=== PATIENT | male | born 1940 | race Caucasian/White ===

== ENCOUNTER 2017-01-20 05:05 | Inpatient (IN) | payer OTHER ==
[~2017-01-20] VITALS: Ht 185.4 cm; Wt 98.9 kg
[2017-01-20] VITALS (17 sets, daily range): BP systolic 76–146
[~2017-01-20 05:05] MED LIST: ALLO100T PO; FURO-149 PO; METH1TAB35 PO; METO200T3 PO; MONT10TA25 PO; OMEP40CA33 PO; POTA-118 PO; SIMV40TA5 PO; WARF5TAB2 PO; WARF7.5T2 PO
[2017-01-20] MEDS ORDERED: NACL 0.9% 1,000 ML IV SCH (05:37)
[2017-01-20] MEDS ORDERED: POTA20TA83 PO (05:39)
[2017-01-20] MEDS ORDERED: METO2.5T6 PO (05:39)
[2017-01-20] MEDS ORDERED: PRED10TA PO (05:43)
[2017-01-20] MEDS ORDERED: METH1TAB35 PO (05:43)
[2017-01-20] MEDS ORDERED: SPIR25TA PO (05:45)
[2017-01-20] MEDS ORDERED: LIP40 PO (05:47)
[2017-01-20] MEDS ORDERED: LISI10TA5 PO (05:47)
[2017-01-20] MEDS ORDERED: PERC10 GT (05:49)
[2017-01-20] MEDS ORDERED: APIX2.5T PO (05:50)
[2017-01-20] MEDS ORDERED: NITR-85 PO (05:51)
[2017-01-20] MEDS ORDERED: PREG75CA PO (05:52)
[2017-01-20] MEDS ORDERED: BUDE6HFA INH (05:54)
[2017-01-20] MEDS ORDERED: WARF5TAB2 PO (05:55)
[2017-01-20] MEDS ORDERED: DOCU-144 PO (06:00)
[2017-01-20] MEDS ORDERED: INSU100V26 SUBCUT (06:00)
[2017-01-20 06:09] LABS: MEAN CORPUSCULAR HEMOGLOBIN 29 pg (27-31)
[2017-01-20 06:19] LABS: HEMATOCRIT 40.5 % (36-54); HEMOGLOBIN 13.6 g/dL (14.0-18.0); MEAN CORPUSCULAR HGB CONC 34 % (32-36); MEAN CORPUSCULAR VOLUME 87 fL (79.0-98.0); PLATELET COUNT (AUTO) 181 K/uL (130-430); RED BLOOD CELL COUNT(AUTO) 4.65 MIL/uL (4.2-6.2); WHITE BLOOD COUNT (AUTO) 15.8 K/uL (4.8-10.8)
[2017-01-20 06:20] LABS: ANION GAP 8 (5-15); CALCIUM 9.2 mg/dL (8.4-11.0); CHLORIDE 98 mmol/L (98-107); CREATININE 3.24 mg/dL (0.55-1.30); GLUCOSE 222 mg/dL (70-99); POTASSIUM 5.5 mmol/L (3.5-5.1); SODIUM SERUM 131 mmol/L (136-145); UREA NITROGEN, BLOOD 69 mg/dL (8-21)
[2017-01-20 06:24] LABS: ALANINE AMINOTRANSFERASE 17 U/L (12-78); ALBUMIN 3.2 g/dL (3.4-4.8); ASPARTATE AMINOTRANSFERASE 19 U/L (10-37); LIPASE 123 U/L (73-393); TOTAL BILIRUBIN 0.8 mg/dL (0.0-1.0); TOTAL PROTEIN, SERUM 6.3 g/dL (6.4-8.3)
[2017-01-20 06:25] LABS: INR 1.1 (0.80-1.20); PROTHROMBIN TIME 11.8 SECS (9.5-12.5)
[2017-01-20] MEDS ORDERED: NACL 0.9% 1,000 ML IV ONE ×2 (06:45→08:00)
[2017-01-20] MEDS ORDERED: AZITHROMYCIN 500 MG in NS 250 ML IV ONE (06:45)
[2017-01-20] MEDS ORDERED: AZITHROMYCIN 500 MG/VIAL (ZITHROMAX) IV ONE (06:59)
[2017-01-20 07:07] LABS: BAND % (MANUAL) 9 % (0-6); BASOPHILS % (MANUAL) 0 % (0-2); EOSINOPHILS % (MANUAL) 0 % (0-7); LYMPHOCYTES % (MANUAL) 2 % (20-46); MONOCYTES % (MANUAL) 4 % (0-11)
[2017-01-20] MEDS ORDERED: KETOROLAC TROMETHAMINE 30 MG VIAL IVP ONE (07:15)
[2017-01-20 08:35] LABS: BILIRUBIN,URINE NEGATIVE (NEGATIVE); BLOOD, URINE NEGATIVE (NEGATIVE); CLARITY/URINE CLEAR (CLEAR); COLOR,URINE YELLOW (YELLOW); GLUCOSE,URINE NEGATIVE (NEGATIVE); KETONES,URINE NEGATIVE (NEGATIVE); LEUKOCYTE ESTERASE ,URINE TRACE (NEGATIVE); NITRITE, URINE NEGATIVE (NEGATIVE); PH,URINE 5.5 (5.0-8.0); PROTEIN URINE NEGATIVE (NEGATIVE); UROBILINOGEN,URINE 0.2 (0.2-1.0)
[2017-01-20 08:46] LABS: BACTERIA,URINE RARE /HPF (None Seen); RBC,URINE 0-3 /HPF (0-3)
[2017-01-20 08:47] LABS: MUCUS,URINE 1+ /LPF (None Seen)
[2017-01-20] MEDS ORDERED: OXYCODONE/ACETAMINOPHEN *10*mg/325 mg TABLET GT PRN (10:45)
[2017-01-20] MEDS ORDERED: MORPHINE 4 MG/ML INJ. SYRINGE IVP PRN (10:45)
[2017-01-20] MEDS ORDERED: DEXTROSE 50% JECT 50 ML DISP.SYRIN IVP PRN (10:45)
[2017-01-20] MEDS ORDERED: MORPHINE 2 MG/ML INJ. SYRINGE IVP PRN (10:45)
[2017-01-20] MEDS ORDERED: IPRATROPIUM BROM 0.5 MG/2.5 ML VIAL.NEB (ATROVENT) INH PRN (10:45)
[2017-01-20] MEDS: IPRATROPIUM BROM 0.5 MG/2.5 ML VIAL.NEB (ATROVENT) INH SCH ×4 (11:00→23:45)
[2017-01-20] MEDS: ALBUTEROL SULFATE 0.083% 2.5 MG/3 ML VIAL.NEB INH SCH ×4 (11:00→23:45)
[2017-01-20] MEDS: INSULIN REGULAR, HUMAN 100 UNITS/ML, 10 ML VIAL (novoLIN R) SUBCUT PRN ×3 (12:45→23:11)
[2017-01-20] MEDS: D5NS 1,000 ML IV SCH ×2 (12:46→20:45)
[2017-01-20] MEDS: metroNIDAZOLE 500 mg/NS 100 ML IV SCH ×2 (12:49→21:38)
[2017-01-20] MEDS ORDERED: NOREPINEPHRINE BITARTRATE 4 MG in NS 246 ML IV PRN (13:45)
[2017-01-20] MEDS: ONDANSETRON HCL 4 MG/2 ML VIAL IVP PRN ×2 (13:58→21:37)
[2017-01-20] MEDS ORDERED: SODIUM POLYSTYRENE SULFONATE 15 GM/60 ML UDBTL PO ONE ×2 (14:00→18:45)
[2017-01-20] MEDS: PREGABALIN 75 MG CAPSULE (LYRICA) PO SCH ×2 (14:00→21:38)
[2017-01-20] MEDS: ACETAMINOPHEN 325 MG TABLET PO PRN ×2 (14:39→21:34)
[2017-01-20] MEDS: MONTELUKAST 10 MG TABLET PO SCH (17:25)
[2017-01-20] MEDS: OMEPRAZOLE 20 MG CAPSULE.DR (PriLOSEC) PO SCH (17:25)
[2017-01-20] MEDS ORDERED: SPIRONOLACTONE 25 MG TABLET (ALDACTONE) PO SCH (21:00)
[2017-01-21] VITALS (21 sets, daily range): BP systolic 89–141
[2017-01-21] MEDS ORDERED: NACL 0.9% 1,000 ML IV ONE
[2017-01-21] MEDS: TEMAZEPAM 15 MG CAPSULE PO PRN (03:25)
[2017-01-21] MEDS: IPRATROPIUM BROM 0.5 MG/2.5 ML VIAL.NEB (ATROVENT) INH SCH ×6 (03:30→23:00)
[2017-01-21] MEDS: ALBUTEROL SULFATE 0.083% 2.5 MG/3 ML VIAL.NEB INH SCH ×2 (03:30→07:05)
[2017-01-21] MEDS: metroNIDAZOLE 500 mg/NS 100 ML IV SCH ×3 (05:17→21:48)
[2017-01-21] MEDS: PREGABALIN 75 MG CAPSULE (LYRICA) PO SCH ×3 (05:17→21:49)
[2017-01-21] MEDS: INSULIN REGULAR, HUMAN 100 UNITS/ML, 10 ML VIAL (novoLIN R) SUBCUT PRN ×3 (05:20→17:49)
[2017-01-21] MEDS: D5NS 1,000 ML IV SCH (05:48)
[2017-01-21 06:09] LABS: BASOPHILS % (AUTO) 0.2 % (0.0-2.0); EOSINOPHILS # (AUTO) 0.1 K/uL (0.0-0.4); EOSINOPHILS % (AUTO) 0.7 % (0.0-4.0); HEMOGLOBIN 11.8 g/dL (14.0-18.0); LYMPHOCYTES # (AUTO) 0.8 K/uL (1.0-5.5); LYMPHOCYTES % (AUTO) 6.6 % (20.5-51.5); MEAN CORPUSCULAR HEMOGLOBIN 29 pg (27-31); MEAN CORPUSCULAR HGB CONC 32 % (32-36); MEAN CORPUSCULAR VOLUME 90 fL (79.0-98.0); MONOCYTES # (AUTO) 1.4 K/uL (0.0-1.0); MONOCYTES % (AUTO) 11.7 % (1.7-9.3); NEUTROPHILS # (AUTO) 10.1 K/uL (1.8-7.7); NEUTROPHILS % (AUTO) 80.8 % (40.0-70.0); PLATELET COUNT (AUTO) 154 K/uL (130-430); RED BLOOD CELL COUNT(AUTO) 4.14 MIL/uL (4.2-6.2); RED CELL DISTRIBUTION WIDTH 15.5 % (9.0-15.0); WHITE BLOOD COUNT (AUTO) 12.4 K/uL (4.8-10.8)
[2017-01-21 06:40] LABS: ALANINE AMINOTRANSFERASE 18 U/L (12-78); ALBUMIN 2.6 g/dL (3.4-4.8); ANION GAP 7 (5-15); ASPARTATE AMINOTRANSFERASE 19 U/L (10-37); CALCIUM 8.1 mg/dL (8.4-11.0); CHLORIDE 104 mmol/L (98-107); CREATININE 2.68 mg/dL (0.55-1.30); GLUCOSE 333 mg/dL (70-99); POTASSIUM 4.6 mmol/L (3.5-5.1); SODIUM SERUM 135 mmol/L (136-145); TOTAL BILIRUBIN 0.8 mg/dL (0.0-1.0); TOTAL PROTEIN, SERUM 5.7 g/dL (6.4-8.3); UREA NITROGEN, BLOOD 51 mg/dL (8-21)
[2017-01-21] MEDS: LEVOFLOXACIN 250 MG/D5W 50 ML IV SCH (08:29)
[2017-01-21] MEDS: ATORVASTATIN 20 MG TABLET PO SCH (08:34)
[2017-01-21] MEDS: ALLOPURINOL 100 MG TABLET (ZYLOPRIM) PO SCH (08:35)
[2017-01-21] MEDS: METOPROLOL SUCCINATE 50 MG TAB.SR.24H (TOPROL XL) PO SCH (08:52)
[2017-01-21] MEDS: AZITHROMYCIN 250 MG in NS 250 ML IV SCH (09:21)
[2017-01-21] MEDS ORDERED: LORazepam 2 MG/ML VIAL IVP PRN (10:30)
[2017-01-21] MEDS ORDERED: LORazepam 2 MG/ML VIAL ONE (10:36)
[2017-01-21] MEDS: MONTELUKAST 10 MG TABLET PO SCH (17:37)
[2017-01-21] MEDS: OMEPRAZOLE 20 MG CAPSULE.DR (PriLOSEC) PO SCH (17:37)
[2017-01-21] MEDS: HEPARIN SODIUM,PORCINE 5000 UNITS/ML VIAL SUBCUT SCH (21:50)
[2017-01-22 00:07] VITALS: BP_SYST 112
[2017-01-22] MEDS: INSULIN REGULAR, HUMAN 100 UNITS/ML, 10 ML VIAL (novoLIN R) SUBCUT PRN ×5 (00:09→23:06)
[2017-01-22] MEDS: IPRATROPIUM BROM 0.5 MG/2.5 ML VIAL.NEB (ATROVENT) INH SCH ×6 (02:00→23:46)
[2017-01-22 03:58] VITALS: BP_SYST 116
[2017-01-22] MEDS: metroNIDAZOLE 500 mg/NS 100 ML IV SCH ×3 (07:00→21:28)
[2017-01-22] MEDS: PREGABALIN 75 MG CAPSULE (LYRICA) PO SCH ×3 (07:02→21:28)
[2017-01-22] MEDS: D5NS 1,000 ML IV SCH ×2 (07:02→09:55)
[2017-01-22 07:10] LABS: BASOPHILS % (AUTO) 0.3 % (0.0-2.0); EOSINOPHILS # (AUTO) 0.3 K/uL (0.0-0.4); EOSINOPHILS % (AUTO) 4.1 % (0.0-4.0); HEMATOCRIT 35.3 % (36-54); HEMOGLOBIN 11.4 g/dL (14.0-18.0); LYMPHOCYTES % (AUTO) 12.5 % (20.5-51.5); MEAN CORPUSCULAR HEMOGLOBIN 29 pg (27-31); MEAN CORPUSCULAR HGB CONC 32 % (32-36); MEAN CORPUSCULAR VOLUME 90 fL (79.0-98.0); MONOCYTES # (AUTO) 1.2 K/uL (0.0-1.0); MONOCYTES % (AUTO) 14.6 % (1.7-9.3); NEUTROPHILS # (AUTO) 5.4 K/uL (1.8-7.7); NEUTROPHILS % (AUTO) 68.5 % (40.0-70.0); PLATELET COUNT (AUTO) 114 K/uL (130-430); RED BLOOD CELL COUNT(AUTO) 3.95 MIL/uL (4.2-6.2); RED CELL DISTRIBUTION WIDTH 15.3 % (9.0-15.0); WHITE BLOOD COUNT (AUTO) 7.9 K/uL (4.8-10.8)
[2017-01-22 07:23] LABS: ANION GAP 6 (5-15); CALCIUM 8.6 mg/dL (8.4-11.0); CHLORIDE 106 mmol/L (98-107); CREATININE 1.74 mg/dL (0.55-1.30); GLUCOSE 282 mg/dL (70-99); POTASSIUM 4.2 mmol/L (3.5-5.1); SODIUM SERUM 138 mmol/L (136-145); UREA NITROGEN, BLOOD 28 mg/dL (8-21)
[2017-01-22 08:00] VITALS: BP_SYST 141
[2017-01-22] MEDS: LEVOFLOXACIN 250 MG/D5W 50 ML IV SCH (08:57)
[2017-01-22] MEDS: ATORVASTATIN 20 MG TABLET PO SCH (08:57)
[2017-01-22] MEDS: ALLOPURINOL 100 MG TABLET (ZYLOPRIM) PO SCH (08:57)
[2017-01-22] MEDS: HEPARIN SODIUM,PORCINE 5000 UNITS/ML VIAL SUBCUT SCH ×2 (09:07→21:29)
[2017-01-22] MEDS: METOPROLOL SUCCINATE 50 MG TAB.SR.24H (TOPROL XL) PO SCH (09:30)
[2017-01-22] MEDS: AZITHROMYCIN 250 MG in NS 250 ML IV SCH (09:47)
[2017-01-22] MEDS ORDERED: GENTAMICIN 80 mg/100 mL NS 100 ML IV ONE (10:45)
[2017-01-22 11:54] VITALS: BP_SYST 139
[2017-01-22] MEDS: AMIKACIN SULFATE 500 MG in D5W 100 ML IV SCH ×2 (13:12→23:10)
[2017-01-22] MEDS: 0.45% NACL 1,000 ML IV SCH (15:59)
[2017-01-22 16:26] VITALS: BP_SYST 132
[2017-01-22] MEDS: MONTELUKAST 10 MG TABLET PO SCH (17:08)
[2017-01-22] MEDS: OMEPRAZOLE 20 MG CAPSULE.DR (PriLOSEC) PO SCH (17:08)
[2017-01-22 20:00] VITALS: BP_SYST 119
[2017-01-22] MEDS: TEMAZEPAM 15 MG CAPSULE PO PRN (23:04)
[2017-01-22] MEDS: ALBUTEROL SULFATE 0.083% 2.5 MG/3 ML VIAL.NEB INH PRN (23:47)
[2017-01-23] VITALS (8 sets, daily range): BP systolic 101–140
[2017-01-23] MEDS: IPRATROPIUM BROM 0.5 MG/2.5 ML VIAL.NEB (ATROVENT) INH SCH ×7 (01:11→23:00)
[2017-01-23] MEDS: ALBUTEROL SULFATE 0.083% 2.5 MG/3 ML VIAL.NEB INH PRN ×2 (03:59→04:00)
[2017-01-23] MEDS: PREGABALIN 75 MG CAPSULE (LYRICA) PO SCH ×3 (05:40→21:41)
[2017-01-23] MEDS: metroNIDAZOLE 500 mg/NS 100 ML IV SCH ×2 (05:40→13:45)
[2017-01-23] MEDS: INSULIN REGULAR, HUMAN 100 UNITS/ML, 10 ML VIAL (novoLIN R) SUBCUT PRN ×3 (05:45→17:08)
[2017-01-23 06:23] LABS: ANION GAP 7 (5-15); CALCIUM 8.4 mg/dL (8.4-11.0); CHLORIDE 104 mmol/L (98-107); CREATININE 1.59 mg/dL (0.55-1.30); GLUCOSE 287 mg/dL (70-99); POTASSIUM 3.7 mmol/L (3.5-5.1); SODIUM SERUM 136 mmol/L (136-145); UREA NITROGEN, BLOOD 17 mg/dL (8-21)
[2017-01-23] MEDS: LEVOFLOXACIN 250 MG/D5W 50 ML IV SCH (08:30)
[2017-01-23] MEDS: AZITHROMYCIN 250 MG in NS 250 ML IV SCH (08:30)
[2017-01-23] MEDS: ATORVASTATIN 20 MG TABLET PO SCH (08:30)
[2017-01-23] MEDS: ALLOPURINOL 100 MG TABLET (ZYLOPRIM) PO SCH (08:30)
[2017-01-23] MEDS: METOPROLOL SUCCINATE 50 MG TAB.SR.24H (TOPROL XL) PO SCH (08:31)
[2017-01-23] MEDS: HEPARIN SODIUM,PORCINE 5000 UNITS/ML VIAL SUBCUT SCH ×2 (08:33→21:42)
[2017-01-23] MEDS: AMIKACIN SULFATE 500 MG in D5W 100 ML IV SCH (11:17)
[2017-01-23] MEDS: 0.45% NACL 1,000 ML IV SCH (13:46)
[2017-01-23] MEDS ORDERED: POLYETHYLENE GLYCOL 3350, 17 GM/ POWD.PACK PO ONE (15:15)
[2017-01-23] MEDS ORDERED: FUROSEMIDE 40 MG/4 ML VIAL IVP ONE (15:30)
[2017-01-23] MEDS: OMEPRAZOLE 20 MG CAPSULE.DR (PriLOSEC) PO SCH (17:05)
[2017-01-23] MEDS: MONTELUKAST 10 MG TABLET PO SCH (17:05)
[2017-01-23] MEDS: CEFEPIME 1 GM in D5W 50 ML IV SCH (17:36)
[2017-01-23] MEDS: BISACODYL 5 MG TABLET.DR (DULCOLAX) PO PRN (21:40)
[2017-01-23] MEDS: TEMAZEPAM 15 MG CAPSULE PO PRN (21:41)
[2017-01-23] MEDS: metroNIDAZOLE 500 MG TABLET PO SCH (21:41)
[2017-01-24] MEDS: INSULIN REGULAR, HUMAN 100 UNITS/ML, 10 ML VIAL (novoLIN R) SUBCUT PRN ×5 (00:08→23:25)
[2017-01-24 04:44] VITALS: BP_SYST 122
[2017-01-24] MEDS: PREGABALIN 75 MG CAPSULE (LYRICA) PO SCH ×3 (05:26→21:31)
[2017-01-24] MEDS: metroNIDAZOLE 500 MG TABLET PO SCH ×3 (05:26→21:31)
[2017-01-24 06:56] LABS: BASOPHILS % (AUTO) 0.5 % (0.0-2.0); EOSINOPHILS # (AUTO) 0.5 K/uL (0.0-0.4); EOSINOPHILS % (AUTO) 6.1 % (0.0-4.0); HEMOGLOBIN 12.2 g/dL (14.0-18.0); LYMPHOCYTES # (AUTO) 1.5 K/uL (1.0-5.5); LYMPHOCYTES % (AUTO) 17.5 % (20.5-51.5); MEAN CORPUSCULAR HEMOGLOBIN 30 pg (27-31); MEAN CORPUSCULAR HGB CONC 34 % (32-36); MEAN CORPUSCULAR VOLUME 89 fL (79.0-98.0); MONOCYTES # (AUTO) 1.1 K/uL (0.0-1.0); MONOCYTES % (AUTO) 13.5 % (1.7-9.3); NEUTROPHILS # (AUTO) 5.2 K/uL (1.8-7.7); NEUTROPHILS % (AUTO) 62.4 % (40.0-70.0); PLATELET COUNT (AUTO) 146 K/uL (130-430); RED BLOOD CELL COUNT(AUTO) 4.04 MIL/uL (4.2-6.2); RED CELL DISTRIBUTION WIDTH 14.6 % (9.0-15.0); WHITE BLOOD COUNT (AUTO) 8.3 K/uL (4.8-10.8)
[2017-01-24 07:12] LABS: ANION GAP 5 (5-15); CALCIUM 8.4 mg/dL (8.4-11.0); CHLORIDE 102 mmol/L (98-107); CREATININE 1.32 mg/dL (0.55-1.30); GLUCOSE 300 mg/dL (70-99); POTASSIUM 3.6 mmol/L (3.5-5.1); SODIUM SERUM 134 mmol/L (136-145); UREA NITROGEN, BLOOD 14 mg/dL (8-21)
[2017-01-24] MEDS: IPRATROPIUM BROM 0.5 MG/2.5 ML VIAL.NEB (ATROVENT) INH SCH ×4 (07:29→19:00)
[2017-01-24 08:00] VITALS: BP_SYST 124
[2017-01-24] MEDS: POLYETHYLENE GLYCOL 3350, 17 GM/ POWD.PACK PO SCH (08:15)
[2017-01-24] MEDS: ATORVASTATIN 20 MG TABLET PO SCH (08:16)
[2017-01-24] MEDS: ALLOPURINOL 100 MG TABLET (ZYLOPRIM) PO SCH (08:16)
[2017-01-24] MEDS: METOPROLOL SUCCINATE 50 MG TAB.SR.24H (TOPROL XL) PO SCH (08:17)
[2017-01-24] MEDS: HEPARIN SODIUM,PORCINE 5000 UNITS/ML VIAL SUBCUT SCH ×2 (08:26→20:40)
[2017-01-24 12:06] VITALS: BP_SYST 136
[2017-01-24] MEDS: ALBUTEROL SULFATE 0.083% 2.5 MG/3 ML VIAL.NEB INH PRN (15:33)
[2017-01-24] MEDS: 0.45% NACL 1,000 ML IV SCH (15:49)
[2017-01-24 16:02] VITALS: BP_SYST 131
[2017-01-24] MEDS ORDERED: FUROSEMIDE 40 MG/4 ML VIAL IVP ONE (16:30)
[2017-01-24] MEDS ORDERED: NA PHOS,M-B/NA PHOS,DI-BA 118 ML (FLEET ENEMA) RC ONE (16:45)
[2017-01-24] MEDS: OMEPRAZOLE 20 MG CAPSULE.DR (PriLOSEC) PO SCH (17:13)
[2017-01-24] MEDS: CEFEPIME 1 GM in D5W 50 ML IV SCH (17:13)
[2017-01-24] MEDS: MONTELUKAST 10 MG TABLET PO SCH (17:13)
[2017-01-24] MEDS ORDERED: MINERAL OIL 133 ML ENEMA RC ONE (20:00)
[2017-01-24] MEDS: BISACODYL 5 MG TABLET.DR (DULCOLAX) PO PRN (21:31)
[2017-01-24] MEDS ORDERED: LACTULOSE 20 GM/30 ML UDC PO ONE (23:00)
[2017-01-25 00:11] VITALS: BP_SYST 99
[2017-01-25] MEDS: IPRATROPIUM BROM 0.5 MG/2.5 ML VIAL.NEB (ATROVENT) INH SCH ×3 (00:13→08:41)
[2017-01-25] MEDS: ALBUTEROL SULFATE 0.083% 2.5 MG/3 ML VIAL.NEB INH PRN (00:13)
[2017-01-25 04:00] VITALS: BP_SYST 97
[2017-01-25] MEDS: metroNIDAZOLE 500 MG TABLET PO SCH (06:03)
[2017-01-25] MEDS: PREGABALIN 75 MG CAPSULE (LYRICA) PO SCH (06:04)
[2017-01-25] MEDS: INSULIN REGULAR, HUMAN 100 UNITS/ML, 10 ML VIAL (novoLIN R) SUBCUT PRN (06:15)
[2017-01-25 08:00] VITALS: BP_SYST 103
[2017-01-25] MEDS: ATORVASTATIN 20 MG TABLET PO SCH (08:59)
[2017-01-25] MEDS: ALLOPURINOL 100 MG TABLET (ZYLOPRIM) PO SCH (08:59)
[2017-01-25] MEDS: POLYETHYLENE GLYCOL 3350, 17 GM/ POWD.PACK PO SCH (08:59)
[2017-01-25] MEDS: METOPROLOL SUCCINATE 50 MG TAB.SR.24H (TOPROL XL) PO SCH (09:00)
[2017-01-25] MEDS: HEPARIN SODIUM,PORCINE 5000 UNITS/ML VIAL SUBCUT SCH (09:00)
[2017-01-25 09:32] VITALS: BP_SYST 103
== END 2017-01-25 09:43 | disposition home health service (06) | DRG 871 ==
LOC: SED 05:05 → SIC 07:58 → STU 01-21 18:15 → SMU 01-23 11:38
PROVIDERS: ADMIT Internal Medicine Hospice and Palliative Medicine; ATTEND Internal Medicine Hospice and Palliative Medicine
DX: A41.51 Sepsis due to Escherichia coli [E. coli] (principal); N17.0 Acute kidney failure with tubular necrosis; J18.9 Pneumonia, unspecified organism; R65.21 Severe sepsis with septic shock; N39.0 Urinary tract infection, site not specified; E66.9 Obesity, unspecified; Z96.651 Presence of right artificial knee joint; I48.2 Chronic atrial fibrillation; J44.9 Chronic obstructive pulmonary disease, unspecified; E11.65 Type 2 diabetes mellitus with hyperglycemia; K52.9 Noninfective gastroenteritis and colitis, unspecified; K57.90 Diverticulosis of intestine, part unspecified, without perforation or abscess without bleeding; I10 Essential (primary) hypertension; E87.5 Hyperkalemia; E86.0 Dehydration; E78.5 Hyperlipidemia, unspecified; F32.9 Major depressive disorder, single episode, unspecified; Z85.118 Personal history of other malignant neoplasm of bronchus and lung; Z87.891 Personal history of nicotine dependence; Z92.21 Personal history of antineoplastic chemotherapy; Z80.0 Family history of malignant neoplasm of digestive organs; Z88.0 Allergy status to penicillin; Z68.28 Body mass index [BMI] 28.0-28.9, adult
CPT/HCPCS: 36415; 71010; 76770; 80048; 80053; 81000-TC; 82962; 83605; 83690-TC; 84484; 85007; 85025; 85027; 85610-TC; 85730-TC; 86713; 87040-TC; 87045-TC; 87046; 87070-TC; 87081; 87086; 87177; 87186-TC; 87205-TC; 87230-TC; 89055; 93005; 94640; 94760; 96361; 96365; 96375; 97116-GP; 97530-GP; 99285; J0278; J0456; J0692; J1580; J1644; J1815; J1885; J1940; J1956; J2060; J2270; J2405; J3490; J7030; J7042; J7050; J7060

== ENCOUNTER 2017-02-05 20:11 | Inpatient (IN) | payer OTHER ==
[2017-01-20 14:45] VITALS: Ht 185.4 cm; Wt 108.4 kg
[~2017-02-05] VITALS: Ht 185.4 cm; Wt 108.4 kg
[2017-02-05 20:11] VITALS: BP 86/46; PULSE 69; RESP 28; TEMP 97.8; O2SAT 96
[~2017-02-05 20:11] MED LIST changes: +APIX2.5T PO; +BP MED; +BUDE6HFA INH; +CHOLESTEROL PILL; +COUMADIN; +DOCU-144 PO; +INSU100V26 SUBCUT; +LIP40 PO; +LISI10TA5 PO; +METO2.5T6 PO; +NITR-85 PO; +PERC10 GT; +POTA20TA83 PO; +PRED10TA PO; +PREG75CA PO; +SPIR25TA PO; +WATER PILL; +[UNRECOGNIZED DRUG - OTHER]
--- NOTE | 2017-02-05 20:11 | NUR ---
Patient to ER bed 1 to gown for evaluation. Side rails up. Report given to WESLEY ONEILL.
--- NOTE | 2017-02-05 20:16 | NUR ---
Patient alert and oriented x 4, came in the ER accompanied by his son with a complaint of low blood pressure SBP on the 60s. BP is 86/46 at this time. No acute distress or SOB noted. Denies n/v/d or fever. Per son, patient still took BP meds even if BP is low. Will monitor patient.
[2017-02-05] MEDS ORDERED: NS 1000 ML BAG IV ONE (20:45)
[2017-02-05] MEDS ORDERED: DEXTROSE 50% JECT 50 ML DISP.SYRIN IVP ONE (20:45)
--- NOTE | 2017-02-05 20:45 | NUR ---
ER Dr. Vicente at bedside examining patient.
[2017-02-05] MEDS ORDERED: DEXTROSE 50% JECT 50 ML DISP.SYRIN ONE (20:46)
--- NOTE | 2017-02-05 20:48 | NUR ---
Patient complaining of tingling sensation on his fingers. Blood sugar 59 at this time. No acute distress or SOB noted at thsi time. BP still low at 83/28. Will continue to monitor.
[2017-02-05 21:12] LABS: BASOPHILS # (AUTO) 0.1 K/uL (0.0-0.2); BASOPHILS % (AUTO) 1.2 % (0.0-2.0); EOSINOPHILS # (AUTO) 0.3 K/uL (0.0-0.4); EOSINOPHILS % (AUTO) 3.1 % (0.0-4.0); HEMATOCRIT 40.4 % (36-54); HEMOGLOBIN 13.5 g/dL (14.0-18.0); LYMPHOCYTES # (AUTO) 2.8 K/uL (1.0-5.5); LYMPHOCYTES % (AUTO) 29.5 % (20.5-51.5); MEAN CORPUSCULAR HEMOGLOBIN 30 pg (27-31); MEAN CORPUSCULAR HGB CONC 33 % (32-36); MEAN CORPUSCULAR VOLUME 90 fL (79.0-98.0); MONOCYTES # (AUTO) 0.9 K/uL (0.0-1.0); MONOCYTES % (AUTO) 9.4 % (1.7-9.3); NEUTROPHILS # (AUTO) 5.4 K/uL (1.8-7.7); NEUTROPHILS % (AUTO) 56.8 % (40.0-70.0); PLATELET COUNT (AUTO) 251 K/uL (130-430); RED BLOOD CELL COUNT(AUTO) 4.49 MIL/uL (4.2-6.2); RED CELL DISTRIBUTION WIDTH 15.1 % (9.0-15.0); WHITE BLOOD COUNT (AUTO) 9.5 K/uL (4.8-10.8)
[2017-02-05 21:27] LABS: INR 1.1 (0.80-1.20); PROTHROMBIN TIME 11.7 SECS (9.5-12.5)
[2017-02-05] MEDS ORDERED: CEFEPIME 1 GM in D5W 50 ML IV ONE (21:30)
[2017-02-05 21:36] LABS: ANION GAP 6 (5-15); CHLORIDE 103 mmol/L (98-107); CREATININE 2.37 mg/dL (0.55-1.30); GLUCOSE 76 mg/dL (70-99); POTASSIUM 4.6 mmol/L (3.5-5.1); SODIUM SERUM 131 mmol/L (136-145); UREA NITROGEN, BLOOD 49 mg/dL (8-21)
[2017-02-05 21:41] LABS: ALANINE AMINOTRANSFERASE 26 U/L (12-78); ALBUMIN 3.2 g/dL (3.4-4.8); ASPARTATE AMINOTRANSFERASE 21 U/L (10-37); TOTAL BILIRUBIN 0.5 mg/dL (0.0-1.0); TOTAL PROTEIN, SERUM 6.6 g/dL (6.4-8.3)
[2017-02-05] MEDS ORDERED: CEFEPIME 1 GM/VIAL (MAXIPIME) ONE (21:47)
[2017-02-05] MEDS ORDERED: NACL 0.9% 1,000 ML IV ONE ×2 (22:57→23:15)
[2017-02-05 23:00] VITALS: BP 120/44; PULSE 76; RESP 20; O2SAT 100
--- NOTE | 2017-02-05 23:05 | NUR ---
Patient will be admitted under the care of Dr. Michelle. Admitted to ICU unit. Will go to room 7. All belongings will be taken home by the son. Summary report printed. Report given to WESLEY Davis at bedside.
[2017-02-05 23:10] VITALS: BP 104/56; PULSE 77; RESP 20; TEMP 97.9; O2SAT 95
--- NOTE | 2017-02-05 23:10 | NUR ---
ADMIT Pt admitted from ER via gurney, accompanied by ACLS staff and family. Pt alert/ oriented to self, time and place. Pt on room air, IV fluids infusing in LAC. 18 ga present LAC started in ER, no redness or swelling noted @ site. Vitals WNL. Pt oriented to room and surroundings.
[2017-02-05] MEDS ORDERED: OXYCODONE/ACETAMINOPHEN *10*mg/325 mg TABLET GT PRN (23:15)
[2017-02-05] MEDS ORDERED: DEXTROSE 50% JECT 50 ML DISP.SYRIN IVP PRN (23:15)
[2017-02-06] VITALS (15 sets, daily range): BP systolic 83–148; BP diastolic 39–84; PULSE 67–86; RESP 13–27; TEMP 97–98.2; O2SAT 90–99
[2017-02-06 04:23] LABS: BILIRUBIN,URINE NEGATIVE (NEGATIVE); BLOOD, URINE NEGATIVE (NEGATIVE); CLARITY/URINE CLEAR (CLEAR); COLOR,URINE YELLOW (YELLOW); GLUCOSE,URINE NEGATIVE (NEGATIVE); KETONES,URINE NEGATIVE (NEGATIVE); LEUKOCYTE ESTERASE ,URINE 1+ (NEGATIVE); NITRITE, URINE NEGATIVE (NEGATIVE); PROTEIN URINE NEGATIVE (NEGATIVE); UROBILINOGEN,URINE 0.2 (0.2-1.0)
[2017-02-06 04:37] LABS: BACTERIA,URINE FEW /HPF (None Seen); MUCUS,URINE None Seen /LPF (None Seen); RBC,URINE 0-3 /HPF (0-3)
[2017-02-06] MEDS: INSULIN REGULAR, HUMAN 100 UNITS/ML, 10 ML VIAL (novoLIN R) SUBCUT PRN ×4 (06:04→21:41)
[2017-02-06 06:37] LABS: ALANINE AMINOTRANSFERASE 24 U/L (12-78); ALBUMIN 2.9 g/dL (3.4-4.8); ANION GAP 5 (5-15); ASPARTATE AMINOTRANSFERASE 22 U/L (10-37); CALCIUM 8.4 mg/dL (8.4-11.0); CHLORIDE 103 mmol/L (98-107); CREATININE 1.98 mg/dL (0.55-1.30); GLUCOSE 121 mg/dL (70-99); PHOSPHORUS 5.6 mg/dL (2.7-4.5); POTASSIUM 4.8 mmol/L (3.5-5.1); SODIUM SERUM 134 mmol/L (136-145); TOTAL BILIRUBIN 0.6 mg/dL (0.0-1.0); TOTAL PROTEIN, SERUM 6.3 g/dL (6.4-8.3); UREA NITROGEN, BLOOD 45 mg/dL (8-21)
[2017-02-06 06:38] LABS: BASOPHILS # (AUTO) 0.1 K/uL (0.0-0.2); BASOPHILS % (AUTO) 1.3 % (0.0-2.0); EOSINOPHILS # (AUTO) 0.3 K/uL (0.0-0.4); EOSINOPHILS % (AUTO) 3.5 % (0.0-4.0); HEMATOCRIT 37.6 % (36-54); HEMOGLOBIN 12.7 g/dL (14.0-18.0); LYMPHOCYTES % (AUTO) 22.5 % (20.5-51.5); MEAN CORPUSCULAR HEMOGLOBIN 31 pg (27-31); MEAN CORPUSCULAR HGB CONC 34 % (32-36); MEAN CORPUSCULAR VOLUME 91 fL (79.0-98.0); MONOCYTES # (AUTO) 0.9 K/uL (0.0-1.0); MONOCYTES % (AUTO) 10.1 % (1.7-9.3); NEUTROPHILS # (AUTO) 5.7 K/uL (1.8-7.7); NEUTROPHILS % (AUTO) 62.6 % (40.0-70.0); PLATELET COUNT (AUTO) 218 K/uL (130-430); RED BLOOD CELL COUNT(AUTO) 4.15 MIL/uL (4.2-6.2); RED CELL DISTRIBUTION WIDTH 15.4 % (9.0-15.0)
--- NOTE | 2017-02-06 07:30 | NUR ---
RECEIVED PT ALERT AND ORIENTED AND REQUESTING TO GO HOME. EXPLAINED THAT HE CAN LEAVE ANYTIME HE WANTS. PTS SON AT BEDSIDE AND WOULD LIKE HIS DAD TO STAY. AFIB ON MONITOR. SBP 80-90'S. WILL WATCH. PT DENIES PAIN. ABD SOFT AND NON DISTENDED. DENIES URGE TO VOID. SALINE LOCK IV. NO ORDERS FOR FLUIDS. HOB UP. PT .CO BEING THIRSTY. WATER GIVEN. WILL CONTINUE TO MONITOR.
--- NOTE | 2017-02-06 08:00 | NUR ---
PLANO F CARE DISCUSSED WITH PTS SON AND PT. PT STILL REQUESTING TO GO HOME. STATES HE DOESN'T NEED TO BE HERE. ATE BREAKFAST AND TAKING LIQUIDS. WILL CONTINUE TO MONITOR.
--- NOTE | 2017-02-06 08:30 | NUR ---
VOIDED 33 CC ANDRAE URINE.
[2017-02-06] MEDS: ATORVASTATIN 20 MG TABLET PO SCH (08:37)
[2017-02-06] MEDS: APIXABAN 2.5 MG TABLET PO SCH ×2 (08:37→21:26)
[2017-02-06] MEDS: ALLOPURINOL 100 MG TABLET (ZYLOPRIM) PO SCH (08:37)
[2017-02-06] MEDS ORDERED: NON-FORMULARY MEDICATION (Methenamine Hippurate 1 G) PO SCH (09:00)
[2017-02-06] MEDS: DOCUSATE SODIUM 100 MG CAPSULE PO SCH ×3 (09:00→21:26)
[2017-02-06] MEDS ORDERED: IPRATROPIUM/ALBUTEROL SULFATE 3 ML AMPUL.NEB INH PRN (09:30)
[2017-02-06] MEDS ORDERED: LEVOFLOXACIN 500 MG/D5W 100 ML IV ONE (09:30)
--- NOTE | 2017-02-06 09:30 | NUR ---
DR KRAUSE IN TO SEE PT. ORDERS LEFT. PT VOIDED 650 CC ANDRAE URINE. URINE SHOWED TO DR KRAUSE.
--- NOTE | 2017-02-06 10:00 | NUR ---
CONSULT: DR. BANG CALLED FOR CONSULT, SPOKE TO YUNG.
--- NOTE | 2017-02-06 10:05 | NUR ---
MD CONSULT: DR. SIDDIQI CALLED FOR UROLOGY CONSULT RE: DYSURIA SPOKE WITH CINDY.
--- NOTE | 2017-02-06 10:08 | NUR ---
CONSULT: DR. MCCULLOUGH CALLED FOR NEPHROLOGY CONSULT, SPOKE WITH CHATO.
[2017-02-06] MEDS: NACL 0.9% 1,000 ML IV SCH ×2 (10:10→21:26)
[2017-02-06] MEDS: METOPROLOL SUCCINATE 50 MG TAB.SR.24H (TOPROL XL) PO SCH (10:10)
--- NOTE | 2017-02-06 10:30 | NUR ---
SPOKE WITH DR MCCULLOUGH ON THE PHONE AND QUESTIONS ANSWERED. BLADDER SCAN ORDERED.
--- NOTE | 2017-02-06 10:50 | NUR ---
BLADDER SCAN DONE. RESULTS WERE 175 CC, 411 CC, 876 CC. PT DENIES URGE TO VOID. WANTS TO GO HOME. DR KRAUSE EXPLAINED TO PT AND PTS SON WHY HE NEEDS TO STAY.
--- NOTE | 2017-02-06 11:28 | NUR ---
DR. ISDDIQI IN TO SEE PT. DR SIDDIQI PLACED A 16 FR KIRKPATRICK WITH 800CC ANDRAE URINE RETURNED.
--- NOTE | 2017-02-06 12:00 | NUR ---
ICU Transfer Received patient aaox3 with forgetfulness via wheelchair. Complaints of discomfort from costello catheter that was just inserted by Dr. Mccray. No distress noted. Vital signs stable. Kept pt comfortable. Oriented to unit. Educated about fall and safety precautions. grease machine worker in place. Kept comfortable. Encouraged to call for assistance. Call light within reach. Will monitor.
--- NOTE | 2017-02-06 14:00 | NUR ---
Rounds Pt awake resting in bed complaints of wanting to have costello catheter removed. States it feels uncomfortable and burning. Informed patient we cannot remove costello catheter because we need doctor's order. Pt states he does not need it because he can urinate normally. Calming and comfort measures given. Will monitor.
--- NOTE | 2017-02-06 14:04 | NUR ---
DISCHARGE PLANNING Per previous visit called [facility] who advised DCP to call [facility] [phone]. Called [facility] [phone] spoke with Keyla who confirmed patient has been on service. Keyla requested order be faxed to [phone] with currently EMR so home health can be resumed. Note left for weekend CM.
--- NOTE | 2017-02-06 14:05 | NUR ---
Social Service Note: GENERAL WAREHOUSE ASSOCIATE met with pt and pt's son at bedside. Pt states that he lives home alone; pt's recently . Pt states that he has a dexigraph operator who lives with him and assist with cooking, cleaning, and laundry. Pt's son states that pt needs assistance with medication management. GENERAL WAREHOUSE ASSOCIATE alerted pt and pt's son that GENERAL WAREHOUSE ASSOCIATE would speak to the physician about ordering home health care for medication management. GENERAL WAREHOUSE ASSOCIATE spoke to physician and asked that pt's previous home health care be resumed on discharge for medication management. GENERAL WAREHOUSE ASSOCIATE had updated DC environmental planner of possible home health order. GENERAL WAREHOUSE ASSOCIATE will remain available for support and will follow up as needed.
--- NOTE | 2017-02-06 16:00 | NUR ---
Rounds Pt asleep but easily awakened. Still complaints to have Cortez catheter removed. States it's bothersome and he does not need it. Informed patient the doctor wants to keep it in to monitor urine output. Calming and comfort measures done. Kept comfortable. Will monitor.
[2017-02-06] MEDS ORDERED: OMEPRAZOLE 20 MG CAPSULE.DR (PriLOSEC) PO SCH (17:00)
[2017-02-06] MEDS ORDERED: MONTELUKAST 10 MG TABLET PO SCH (18:00)
--- NOTE | 2017-02-06 18:30 | NUR ---
Closing notes Pt awake complaints of headache but son refused to have patient medicated with Percoset because it makes him confused. Will call Dr. Michelle for medication order. Kept comfortable. Will endorse care to incoming nurse.
[2017-02-06] MEDS ORDERED: ACETAMINOPHEN/CODEINE 300 MG-30 MG TABLET PO PRN ×2 (18:45)
[2017-02-06] MEDS ORDERED: ACETAMINOPHEN 325 MG TABLET PO PRN (18:45)
--- NOTE | 2017-02-06 20:00 | NUR ---
NOTES; SEEN PT IN BED, A/A/O X3, FORGETFUL AT TIMES. NO ACUTE DISTRESS NOTED. VITAL SIGNS STABLE, AFEBRILE. ORDERED IVF INFUSING WELL ON THE LEFT FOREARM, GAUGE 20, PATENT. NO SIGNS OF INFECTION NOTED. KIRPKATRICK CATHETER DRAINING TO GRAVITY, YELLOW URINE OUT PUT. NO BLOODY URINE NOTED. KIRKPATRICK CATHETER SECUREMENT IN PLACE. DENIES ANY PAIN AT THIS TIME. BED LOCKED AND IN LOW POSITION, BED ALARM ON. SIDE RAILS UP X3. CALL LIGHT WITHIN REACH. INFORMED PT TO USE CALL LIGHT TO CALL FOR ANY NEED TO ASSIST. PT VERBALIZED UNDERSTANDING.
[2017-02-06] MEDS ORDERED: CEFEPIME 1 GM in D5W 50 ML IV SCH (21:00)
[2017-02-06] MEDS: PHENAZOPYRIDINE HCL 100 MG TABLET PO SCH (21:26)
--- NOTE | 2017-02-06 21:44 | NUR ---
NOTES; PT REFUSED SCHEDULED PO MEDICATION. PT STATED " I DON'T HAVE A PROBLEM MOVING MY BOWELS". ALL OTHER SCHEDULED PO MEDS ADMINISTERED. PT TOLERATED MEDS WELL. BLOOD SUGAR FOUND TO BE 243. INSULIN ADMINISTERED PER SLIDING SCALE ORDER. WILL CONTINUE TO MONITOR.
[2017-02-06] MEDS ORDERED: ZOLPIDEM TARTRATE 5 MG TABLET PO PRN (22:00)
--- NOTE | 2017-02-06 22:28 | NUR ---
NOTES; AMBIEN 10MG PO ADMINISTERED FOR INSOMNIA.
--- NOTE | 2017-02-06 23:30 | NUR ---
NOTES; CHECKED ON PT, APPEARED TO BE SLEEPING, CHEST RISE AND FALL. NO APPARENT DISTRESS NOTED . SAFETY MEASURES IN PROGRESS.
[2017-02-07 00:37] VITALS: BP 97/54; PULSE 77; RESP 18; TEMP 96.9; O2SAT 96
--- NOTE | 2017-02-07 03:00 | NUR ---
NOTES; PT CALLED FOR ANOTHER SLEEPING PILL. PT STATED I CANT SLEEP, GIVE ME ANOTHER SLEEPING PILL. INFORMED PT THAT I CAN NOT GIVE ANOTHER SLEEPING PILL AFTER TWO AM. PT STATED THEN GIVE ME COFFEE. PT SON AT BEDSIDE SAID" DON'T GIVE HIM" HE WILL SLEEP"
[2017-02-07 04:00] VITALS: BP 134/71; PULSE 75; RESP 20; TEMP 96.5; O2SAT 95
--- NOTE | 2017-02-07 05:00 | NUR ---
NOTES; AWAKE, WATCHING TV. NO APPARENT DISTRESS NOTED. VITAL SIGNS STABLE, AFEBRILE. DENIES ANY PAIN AT THIS TIME. SAFETY MEASURES IN PROGRESS.
[2017-02-07] MEDS: INSULIN REGULAR, HUMAN 100 UNITS/ML, 10 ML VIAL (novoLIN R) SUBCUT PRN (06:13)
[2017-02-07] MEDS: NACL 0.9% 1,000 ML IV SCH (06:15)
--- NOTE | 2017-02-07 06:43 | NUR ---
NOTES; BLOOD SUGAR FOUND TO BE 287. INSULIN ADMINISTERED SUBCUTANEOUS PER SLIDING SCALE ORDERS. KIRKPATRICK CATHETER DRAINING WELL. ALL NEEDS ATTENDED. SAFETY MEASURES MAINTAINED.
--- NOTE | 2017-02-07 07:15 | NUR ---
AM ROUNDS PT C/O WANTING TO GO HOME..WANTS KIRKPATRICK TO BE TAKEN OUT...INSIST ON SIGNING OUT AMA...SON AT BEDSIDE TRYING TO CALM PT DOWN..PT WAS VERY VERBAL AND INSISTENT ON LEAVING BY 9AM..STATED "IF THE DOCTOR IS NOT HERE BY 9AM I WILL LEAVE AMA...I AM A WELFARE ADVISER AND I KNOW MY RIGHTS"...WAS DEMANDING THAT NURSE REMOVE HIS KIRKPATRICK CATHETER, EXPLAINED TO PT THAT DR. KRAUSE OR DR. SIDDIQI NEEDS TO GIVE A ORDER FOR KIRKPATRICK TO BE REMOVED..PT STATED "I DONT CARE..I WILL LEAVE AT 9AM WITH OR WITHOUT THE DOCTORS PERMISSION. I WILL SIGN THE AMA FORM" CALLED DR KRAUSE EXPLAINED THE ABOVE INCIDENT, DR KRAUSE WILL TRY TO ARRIVE BEFORE 9AM, NO PROMISES...WILL CONT TO MONITOR PT
[2017-02-07 07:26] LABS: BASOPHILS # (AUTO) 0.1 K/uL (0.0-0.2); BASOPHILS % (AUTO) 0.8 % (0.0-2.0); EOSINOPHILS # (AUTO) 0.3 K/uL (0.0-0.4); EOSINOPHILS % (AUTO) 3.7 % (0.0-4.0); HEMATOCRIT 36.8 % (36-54); HEMOGLOBIN 12.5 g/dL (14.0-18.0); LYMPHOCYTES # (AUTO) 1.5 K/uL (1.0-5.5); LYMPHOCYTES % (AUTO) 21.8 % (20.5-51.5); MEAN CORPUSCULAR HEMOGLOBIN 31 pg (27-31); MEAN CORPUSCULAR HGB CONC 34 % (32-36); MEAN CORPUSCULAR VOLUME 90 fL (79.0-98.0); MONOCYTES # (AUTO) 0.8 K/uL (0.0-1.0); NEUTROPHILS # (AUTO) 4.3 K/uL (1.8-7.7); NEUTROPHILS % (AUTO) 62.7 % (40.0-70.0); PLATELET COUNT (AUTO) 173 K/uL (130-430); RED CELL DISTRIBUTION WIDTH 15.1 % (9.0-15.0)
--- NOTE | 2017-02-07 07:27 | NUR ---
-Paged Dr Michelle [facility] [phone]
[2017-02-07 08:00] LABS: CALCIUM 8.8 mg/dL (8.4-11.0); CHLORIDE 103 mmol/L (98-107); CREATININE 1.55 mg/dL (0.55-1.30); GLUCOSE 263 mg/dL (70-99); POTASSIUM 4.9 mmol/L (3.5-5.1)
--- NOTE | 2017-02-07 08:40 | NUR ---
ROUNDS PT A/O, F/C DRAINING WELL...PT IVF INFUSING WELL TO LFA..PT STILL WANTING TO LEAVE AMA..SON AT BEDSIDE IS TRYING TO PERSUADE HIS FATHER TO WAIT UNTIL DR KRAUSE COMES IN...PO MEDICATIONS GIVEN..PT CALM AND COOPERATIVE WITH TAKING HIS MEDICATION...WILL CONT TO MONITOR
[2017-02-07] MEDS: APIXABAN 2.5 MG TABLET PO SCH (08:47)
[2017-02-07] MEDS: ATORVASTATIN 20 MG TABLET PO SCH (08:47)
[2017-02-07] MEDS: ALLOPURINOL 100 MG TABLET (ZYLOPRIM) PO SCH (08:47)
[2017-02-07] MEDS: DOCUSATE SODIUM 100 MG CAPSULE PO SCH (08:47)
[2017-02-07] MEDS: PHENAZOPYRIDINE HCL 100 MG TABLET PO SCH (08:47)
[2017-02-07] MEDS: METOPROLOL SUCCINATE 50 MG TAB.SR.24H (TOPROL XL) PO SCH (08:48)
[2017-02-07 08:51] VITALS: BP 113/64; PULSE 74; RESP 20; TEMP 98.2; O2SAT 98
[2017-02-07 09:11] LABS: UREA NITROGEN, BLOOD 34 mg/dL (8-21)
[2017-02-07 09:18] LABS: ANION GAP 8 (5-15); SODIUM SERUM 134 mmol/L (136-145)
[2017-02-07] MEDS ORDERED: CEPH250C PO (10:00)
--- NOTE | 2017-02-07 10:20 | NUR ---
DR KRAUSE AT BEDSIDE
--- NOTE | 2017-02-07 10:24 | NUR ---
CM DC PLANNING:[facility] RECEIVED DC ORDER FOR Pt; ATTEMPTED TO CONTACT NURSE/JENNIFER TO INFORM OF CONTACT NUMBER: [phone] FOR [facility] AGENCY ARRANGED YESTERDAY PER DC DICE DEALER/ALOK. CM S/W CHG/TINA TO NOTIFY NURSE/JENNIFER OF CONTACT NUMBER IN CM NOTES.
--- NOTE | 2017-02-07 10:30 | NUR ---
KIRKPATRICK CATHETER REMOVED.. 10ML NS REMOVED FROM [place]...CATHETER REMOVED WITH TIP INTACT...PT TOLERATED WELL..SON AT BEDSIDE AT TIME OF FC REMOVAL
[2017-02-07 10:36] VITALS: BP 113/64; PULSE 74; RESP 20; TEMP 98.2; O2SAT 98
[2017-02-07 11:00] VITALS: BP 133/77; PULSE 88; RESP 21; TEMP 98; O2SAT 97
--- NOTE | 2017-02-07 11:00 | NUR ---
D/C Patient Patient given medication reconciliation form and D/C instructions. Exit Care provided. Patient verbalized understanding. MD discussed with patient the results and treatment provided. Ambulatory with steady gait for discharge to home. Patient in stable condition, ID band removed. IV catheter removed, intact and dressing applied, no active bleeding. Rx of KEFLEX given. Patient educated on pain management. All belongings sent with patient.ALL INFORMATION GIVEN TO BOTH PT AND PTS SON, JR. PHONE NUMBER TO [facility]/H GIVEN, INFORMATION REGARDING FOLLOW UP APPTS, PER SON PT WILL SEE DR SIDDIQI THIS COMING WEEK...ALL FORMS ACKNOWLEDGED AND SIGNED BY PT...PT STABLE UPON DC
[2017-02-10 01:31] LABS: % FREE PSA 26.7 % (.); FREE PSA 0.08 ng/mL; PROSTATE SPECIFIC AG TOTAL 0.3 ng/mL (0.0-4.0)
--- NOTE | 2017-02-11 10:23 | NUR ---
Discharge Follow Up Phone Calls: Plant Science Professor called and left voice mails for pt ([phone]) on 02/09/17 and 02/10/17. MIX CRUSHER OPERATOR called pt today and pt's son, Uriah Ricks, answered the phone. Pt's son states that pt is doing well; pt's prescription has been filled; there are no questions regarding discharge or medication instructions; pt received first visit from [facility] on 02/10/17; pt checks blood sugar as directed by PCP; pt has a follow up appointment scheduled with Dr. Mccray on 02/16/17, but pt's son requested for MIX CRUSHER OPERATOR to change pt's appointment to this week. MIX CRUSHER OPERATOR called Dr. Mccray's office ([phone]) and the clinic receptionist states that Dr. Mccray can see the pt on 02/12/17 at 8:15am at the [facility] ([address] [place] [address], [address] [place] [address]). MIX CRUSHER OPERATOR called pt's son and provided pt's son with update regarding pt's appointment. Pt's son expressed gratitude for assistance. Pt's son did not express any other needs or concerns and denied the need for additional follow up at this time. No further follow up phone calls required at this time.
== END 2017-02-07 11:03 | disposition home health service (06) | DRG 871 ==
LOC: SED 20:11 → SIC 22:55 → STU 02-06 12:16
PROVIDERS: ADMIT Internal Medicine; ATTEND Internal Medicine
DX: A41.9 Sepsis, unspecified organism (principal); N17.0 Acute kidney failure with tubular necrosis; R65.21 Severe sepsis with septic shock; N39.0 Urinary tract infection, site not specified; D68.59 Other primary thrombophilia; E44.1 Mild protein-calorie malnutrition; N13.8 Other obstructive and reflux uropathy; N18.4 Chronic kidney disease, stage 4 (severe); E66.9 Obesity, unspecified; I12.9 Hypertensive chronic kidney disease with stage 1 through stage 4 chronic kidney disease, or unspecified chronic kidney disease; I48.2 Chronic atrial fibrillation; E11.22 Type 2 diabetes mellitus with diabetic chronic kidney disease; Z96.651 Presence of right artificial knee joint; E11.21 Type 2 diabetes mellitus with diabetic nephropathy; E11.649 Type 2 diabetes mellitus with hypoglycemia without coma; J44.9 Chronic obstructive pulmonary disease, unspecified; E86.0 Dehydration; E78.5 Hyperlipidemia, unspecified; N40.1 Benign prostatic hyperplasia with lower urinary tract symptoms; Z90.2 Acquired absence of lung [part of]; Z88.0 Allergy status to penicillin; Z79.1 Long term (current) use of non-steroidal anti-inflammatories (NSAID); Z79.4 Long term (current) use of insulin; Z79.01 Long term (current) use of anticoagulants; Z79.899 Other long term (current) drug therapy; Z68.31 Body mass index [BMI] 31.0-31.9, adult; Z85.118 Personal history of other malignant neoplasm of bronchus and lung; Z87.891 Personal history of nicotine dependence
CPT/HCPCS: 36415; 80048; 80053; 81000-TC; 82962; 83036; 83605; 84100-TC; 84153; 84484; 85025; 85610-TC; 85730-TC; 87040-TC; 87081; 87086; 93005; 96374; 97116-GP; 99285; J0692; J1815; J1956; J7030; J7060

== ENCOUNTER 2017-02-12 08:42 | Inpatient (IN) | payer OTHER ==
[2017-01-20 14:45] VITALS: Ht 185.4 cm; Wt 99.3 kg
[~2017-02-12] VITALS: Ht 185.4 cm; Wt 99.3 kg
[~2017-02-12 08:42] MED LIST changes: +CEPH250C PO
[2017-02-12 08:51] VITALS: BP 87/47; PULSE 95; RESP 17; TEMP 96.6; O2SAT 97
[2017-02-12] MEDS ORDERED: NACL 0.9% 1,000 ML IV SCH (08:51)
[2017-02-12 09:26] LABS: BASOPHILS # (AUTO) 0.1 K/uL (0.0-0.2); BASOPHILS % (AUTO) 0.9 % (0.0-2.0); EOSINOPHILS # (AUTO) 0.1 K/uL (0.0-0.4); EOSINOPHILS % (AUTO) 1.7 % (0.0-4.0); HEMATOCRIT 44.3 % (36-54); HEMOGLOBIN 14.1 g/dL (14.0-18.0); LYMPHOCYTES # (AUTO) 1.3 K/uL (1.0-5.5); LYMPHOCYTES % (AUTO) 17.3 % (20.5-51.5); MEAN CORPUSCULAR HEMOGLOBIN 29 pg (27-31); MEAN CORPUSCULAR HGB CONC 32 % (32-36); MEAN CORPUSCULAR VOLUME 91 fL (79.0-98.0); MONOCYTES # (AUTO) 1.3 K/uL (0.0-1.0); MONOCYTES % (AUTO) 16.1 % (1.7-9.3); PLATELET COUNT (AUTO) 207 K/uL (130-430); RED BLOOD CELL COUNT(AUTO) 4.87 MIL/uL (4.2-6.2); RED CELL DISTRIBUTION WIDTH 15.4 % (9.0-15.0); WHITE BLOOD COUNT (AUTO) 7.8 K/uL (4.8-10.8)
[2017-02-12 09:27] LABS: ANION GAP 12 (5-15); CALCIUM 9.5 mg/dL (8.4-11.0); CHLORIDE 101 mmol/L (98-107); GLUCOSE 277 mg/dL (70-99); POTASSIUM 5.1 mmol/L (3.5-5.1); SODIUM SERUM 136 mmol/L (136-145); UREA NITROGEN, BLOOD 39 mg/dL (8-21)
[2017-02-12 09:32] LABS: ALANINE AMINOTRANSFERASE 22 U/L (12-78); ALBUMIN 3.6 g/dL (3.4-4.8); ASPARTATE AMINOTRANSFERASE 25 U/L (10-37); TOTAL BILIRUBIN 0.9 mg/dL (0.0-1.0); TOTAL PROTEIN, SERUM 7.5 g/dL (6.4-8.3)
[2017-02-12] MEDS ORDERED: NACL 0.9% 1,000 ML IV ONE (10:00)
[2017-02-12] MEDS ORDERED: CEFEPIME 1 GM in D5W 50 ML IV ONE (10:00)
[2017-02-12 10:06] LABS: BILIRUBIN,URINE NEGATIVE (NEGATIVE); BLOOD, URINE NEGATIVE (NEGATIVE); CLARITY/URINE CLEAR (CLEAR); COLOR,URINE YELLOW (YELLOW); GLUCOSE,URINE NEGATIVE (NEGATIVE); KETONES,URINE NEGATIVE (NEGATIVE); LEUKOCYTE ESTERASE ,URINE NEGATIVE (NEGATIVE); NITRITE, URINE NEGATIVE (NEGATIVE); PH,URINE 5.5 (5.0-8.0); PROTEIN URINE NEGATIVE (NEGATIVE); UROBILINOGEN,URINE 0.2 (0.2-1.0)
[2017-02-12] MEDS ORDERED: CEFEPIME 1 GM/VIAL (MAXIPIME) ONE (10:26)
[2017-02-12] MEDS: NACL 0.9% 1,000 ML IV SCH ×3 (10:39→23:37)
[2017-02-12 11:03] VITALS: BP 148/81; PULSE 81; RESP 16; TEMP 97.3; O2SAT 98
[2017-02-12 11:37] VITALS: BP 148/81; PULSE 81; RESP 16; TEMP 97.3; O2SAT 98
[2017-02-12] MEDS ORDERED: OXYCODONE/ACETAMINOPHEN *10*mg/325 mg TABLET GT PRN (12:00)
[2017-02-12] MEDS ORDERED: INSULIN REGULAR, HUMAN 100 UNITS/ML, 10 ML VIAL (novoLIN R) SUBCUT PRN (12:15)
[2017-02-12] MEDS ORDERED: DEXTROSE 50% JECT 50 ML DISP.SYRIN IVP PRN (12:15)
[2017-02-12] MEDS: PHENAZOPYRIDINE HCL 100 MG TABLET PO SCH ×2 (12:37→17:37)
[2017-02-12 13:49] VITALS: BP 119/70; PULSE 91; RESP 20; TEMP 97.7; O2SAT 100
[2017-02-12 16:03] VITALS: BP 118/72; PULSE 91; RESP 18; TEMP 98.4; O2SAT 94
[2017-02-12] MEDS ORDERED: MAG-AL HYDROX/SIMETH 30 ML UDC PO PRN (16:30)
[2017-02-12] MEDS: ONDANSETRON HCL 4 MG/2 ML VIAL IVP PRN (16:49)
[2017-02-12] MEDS: OMEPRAZOLE 20 MG CAPSULE.DR (PriLOSEC) PO SCH (16:50)
[2017-02-12] MEDS: ACETAMINOPHEN 325 MG TABLET PO PRN (16:51)
[2017-02-12] MEDS: MONTELUKAST 10 MG TABLET PO SCH (17:37)
[2017-02-12] MEDS: INSULIN ASPART 100 UNITS/ML, 10 ML VIAL (NovoLOG) SUBCUT PRN ×2 (17:39→20:51)
[2017-02-12] MEDS: OXYCODONE/ACETAMINOPHEN *10*mg/325 mg TABLET PO PRN (18:05)
[2017-02-12 19:12] LABS: ANION GAP 8 (5-15); CALCIUM 8.7 mg/dL (8.4-11.0); CHLORIDE 104 mmol/L (98-107); CREATININE 1.98 mg/dL (0.55-1.30); GLUCOSE 195 mg/dL (70-99); SODIUM SERUM 138 mmol/L (136-145); UREA NITROGEN, BLOOD 33 mg/dL (8-21)
[2017-02-12 20:30] VITALS: BP 93/54; PULSE 89; RESP 18; TEMP 98.1; O2SAT 95
[2017-02-12] MEDS: APIXABAN 2.5 MG TABLET PO SCH (20:48)
[2017-02-12] MEDS: DOCUSATE SODIUM 100 MG CAPSULE PO SCH (20:49)
[2017-02-12] MEDS ORDERED: ZOLPIDEM TARTRATE 5 MG TABLET PO PRN (23:15)
[2017-02-13] VITALS (7 sets, daily range): BP systolic 100–128; BP diastolic 54–75; PULSE 76–94; RESP 17–20; TEMP 97.4–98.9; O2SAT 93–98
[2017-02-13] MEDS: NACL 0.9% 1,000 ML IV SCH ×3 (05:48→20:12)
[2017-02-13 06:02] LABS: BASOPHILS % (AUTO) 0.6 % (0.0-2.0); EOSINOPHILS # (AUTO) 0.2 K/uL (0.0-0.4); EOSINOPHILS % (AUTO) 2.9 % (0.0-4.0); HEMATOCRIT 36.6 % (36-54); HEMOGLOBIN 12.2 g/dL (14.0-18.0); LYMPHOCYTES # (AUTO) 1.2 K/uL (1.0-5.5); LYMPHOCYTES % (AUTO) 16.5 % (20.5-51.5); MEAN CORPUSCULAR HEMOGLOBIN 30 pg (27-31); MEAN CORPUSCULAR HGB CONC 34 % (32-36); MEAN CORPUSCULAR VOLUME 91 fL (79.0-98.0); MONOCYTES # (AUTO) 1.1 K/uL (0.0-1.0); MONOCYTES % (AUTO) 14.6 % (1.7-9.3); NEUTROPHILS # (AUTO) 5.1 K/uL (1.8-7.7); NEUTROPHILS % (AUTO) 65.4 % (40.0-70.0); PLATELET COUNT (AUTO) 154 K/uL (130-430); RED BLOOD CELL COUNT(AUTO) 4.04 MIL/uL (4.2-6.2); RED CELL DISTRIBUTION WIDTH 14.8 % (9.0-15.0); WHITE BLOOD COUNT (AUTO) 7.6 K/uL (4.8-10.8)
[2017-02-13] MEDS: INSULIN ASPART 100 UNITS/ML, 10 ML VIAL (NovoLOG) SUBCUT PRN ×3 (06:02→20:56)
[2017-02-13 06:37] LABS: ANION GAP 5 (5-15); CHLORIDE 106 mmol/L (98-107); POTASSIUM 4.1 mmol/L (3.5-5.1); SODIUM SERUM 133 mmol/L (136-145)
[2017-02-13 06:38] LABS: CALCIUM 8.6 mg/dL (8.4-11.0); CREATININE 1.51 mg/dL (0.55-1.30); GLUCOSE 182 mg/dL (70-99); UREA NITROGEN, BLOOD 26 mg/dL (8-21)
[2017-02-13 06:56] LABS: THYROID STIMULATING HORMONE 1.46 uIu/mL (0.34-4.82)
[2017-02-13 07:28] LABS: ERYTHROCYTE SEDIMENTATION RATE 30 MM/HR (0-15)
[2017-02-13] MEDS: APIXABAN 2.5 MG TABLET PO SCH ×2 (09:23→20:12)
[2017-02-13] MEDS: ATORVASTATIN 20 MG TABLET PO SCH (09:23)
[2017-02-13] MEDS: PHENAZOPYRIDINE HCL 100 MG TABLET PO SCH ×3 (09:23→19:12)
[2017-02-13] MEDS: DOCUSATE SODIUM 100 MG CAPSULE PO SCH ×2 (09:23→20:12)
[2017-02-13] MEDS: METOPROLOL SUCCINATE 50 MG TAB.SR.24H (TOPROL XL) PO SCH (09:24)
[2017-02-13] MEDS: ALLOPURINOL 100 MG TABLET (ZYLOPRIM) PO SCH (09:25)
[2017-02-13] MEDS: LISINOPRIL 10 MG TABLET (PRINIVIL) PO SCH (09:25)
[2017-02-13] MEDS: ONDANSETRON HCL 4 MG/2 ML VIAL IVP PRN (12:11)
[2017-02-13] MEDS ORDERED: cefTRIAXone 1 GM in D5W 50 ML IV SCH (14:00)
[2017-02-13] MEDS: ACETAMINOPHEN 325 MG TABLET PO PRN (16:14)
[2017-02-13] MEDS: OMEPRAZOLE 20 MG CAPSULE.DR (PriLOSEC) PO SCH (16:15)
[2017-02-13] MEDS: MONTELUKAST 10 MG TABLET PO SCH (19:12)
[2017-02-13] MEDS ORDERED: MIRTAZAPINE 15 MG TABLET PO SCH (21:00)
[2017-02-14 00:14] VITALS: BP 130/65; PULSE 95; RESP 18; TEMP 98.4; O2SAT 94
[2017-02-14] MEDS: NACL 0.9% 1,000 ML IV SCH ×2 (03:38→09:41)
[2017-02-14 04:41] VITALS: BP 108/56; PULSE 91; RESP 20; TEMP 98.6; O2SAT 94
[2017-02-14 08:06] LABS: BASOPHILS % (AUTO) 0.7 % (0.0-2.0); EOSINOPHILS # (AUTO) 0.3 K/uL (0.0-0.4); EOSINOPHILS % (AUTO) 6.6 % (0.0-4.0); HEMOGLOBIN 12.1 g/dL (14.0-18.0); LYMPHOCYTES # (AUTO) 1.3 K/uL (1.0-5.5); LYMPHOCYTES % (AUTO) 25.1 % (20.5-51.5); MEAN CORPUSCULAR HEMOGLOBIN 30 pg (27-31); MEAN CORPUSCULAR HGB CONC 33 % (32-36); MEAN CORPUSCULAR VOLUME 91 fL (79.0-98.0); MONOCYTES # (AUTO) 0.8 K/uL (0.0-1.0); MONOCYTES % (AUTO) 14.5 % (1.7-9.3); NEUTROPHILS # (AUTO) 2.8 K/uL (1.8-7.7); NEUTROPHILS % (AUTO) 53.1 % (40.0-70.0); PLATELET COUNT (AUTO) 148 K/uL (130-430); RED BLOOD CELL COUNT(AUTO) 4.07 MIL/uL (4.2-6.2); RED CELL DISTRIBUTION WIDTH 15.1 % (9.0-15.0); WHITE BLOOD COUNT (AUTO) 5.2 K/uL (4.8-10.8)
[2017-02-14 08:14] VITALS: BP 106/62; PULSE 72; RESP 16; TEMP 98.2; O2SAT 99
[2017-02-14] MEDS: ATORVASTATIN 20 MG TABLET PO SCH (08:55)
[2017-02-14] MEDS: METOPROLOL SUCCINATE 50 MG TAB.SR.24H (TOPROL XL) PO SCH (08:55)
[2017-02-14] MEDS: DOCUSATE SODIUM 100 MG CAPSULE PO SCH (08:55)
[2017-02-14] MEDS: ALLOPURINOL 100 MG TABLET (ZYLOPRIM) PO SCH (08:55)
[2017-02-14] MEDS: APIXABAN 2.5 MG TABLET PO SCH (08:56)
[2017-02-14] MEDS: PHENAZOPYRIDINE HCL 100 MG TABLET PO SCH ×2 (08:56→12:01)
[2017-02-14 09:06] LABS: ALANINE AMINOTRANSFERASE 23 U/L (12-78); ALBUMIN 2.9 g/dL (3.4-4.8); ANION GAP 5 (5-15); ASPARTATE AMINOTRANSFERASE 32 U/L (10-37); CALCIUM 8.7 mg/dL (8.4-11.0); CHLORIDE 110 mmol/L (98-107); CREATININE 1.19 mg/dL (0.55-1.30); GLUCOSE 150 mg/dL (70-99); POTASSIUM 4.5 mmol/L (3.5-5.1); SODIUM SERUM 139 mmol/L (136-145); TOTAL BILIRUBIN 0.6 mg/dL (0.0-1.0); TOTAL PROTEIN, SERUM 6.1 g/dL (6.4-8.3); UREA NITROGEN, BLOOD 12 mg/dL (8-21)
[2017-02-14] MEDS: LISINOPRIL 10 MG TABLET (PRINIVIL) PO SCH (09:49)
[2017-02-14] MEDS: OXYCODONE/ACETAMINOPHEN *10*mg/325 mg TABLET PO PRN (09:53)
[2017-02-14] MEDS: INSULIN ASPART 100 UNITS/ML, 10 ML VIAL (NovoLOG) SUBCUT PRN (12:03)
[2017-02-14 12:14] VITALS: BP 118/75; PULSE 60; RESP 19; TEMP 98; O2SAT 98
[2017-02-14 13:50] VITALS: BP 102/44; PULSE 60; RESP 17; TEMP 96.8; O2SAT 96
[2017-02-14] MEDS ORDERED: CEPH250C PO (13:55)
[2017-02-14] MEDS ORDERED: PHEN-726 PO (13:56)
[2017-02-14] MEDS ORDERED: REM15 PO (13:56)
[2017-02-14] MEDS ORDERED: LACT1CAP57 PO (13:56)
[2017-02-14] MEDS ORDERED: DIF100 PO (13:57)
== END 2017-02-14 14:10 | disposition home health service (06) | DRG 314 ==
LOC: SED 08:42 → STU 10:24
PROVIDERS: ADMIT Internal Medicine; ATTEND Internal Medicine
DX: I95.9 Hypotension, unspecified (principal); N17.0 Acute kidney failure with tubular necrosis; R57.1 Hypovolemic shock; N13.8 Other obstructive and reflux uropathy; D68.59 Other primary thrombophilia; N39.0 Urinary tract infection, site not specified; N18.9 Chronic kidney disease, unspecified; E11.21 Type 2 diabetes mellitus with diabetic nephropathy; E66.9 Obesity, unspecified; I48.0 Paroxysmal atrial fibrillation; N31.9 Neuromuscular dysfunction of bladder, unspecified; E11.22 Type 2 diabetes mellitus with diabetic chronic kidney disease; E78.00 Pure hypercholesterolemia, unspecified; E78.5 Hyperlipidemia, unspecified; I12.9 Hypertensive chronic kidney disease with stage 1 through stage 4 chronic kidney disease, or unspecified chronic kidney disease; J44.9 Chronic obstructive pulmonary disease, unspecified; F43.20 Adjustment disorder, unspecified; N40.1 Benign prostatic hyperplasia with lower urinary tract symptoms; Z96.651 Presence of right artificial knee joint; Z79.4 Long term (current) use of insulin; Z90.2 Acquired absence of lung [part of]; Z88.0 Allergy status to penicillin; Z79.899 Other long term (current) drug therapy; Z68.28 Body mass index [BMI] 28.0-28.9, adult; Z85.118 Personal history of other malignant neoplasm of bronchus and lung; Z87.891 Personal history of nicotine dependence; Z82.49 Family history of ischemic heart disease and other diseases of the circulatory system; Z83.3 Family history of diabetes mellitus; Z87.440 Personal history of urinary (tract) infections
CPT/HCPCS: 36415; 80048; 80053; 81003; 82962; 83605; 83880; 84443-TC; 84484; 85025; 85651-TC; 87040-TC; 87081; 87086; 93005; 93306; 99291; J0692; J0696; J1815; J2405; J7030; J7060

== ENCOUNTER 2017-02-15 06:54 | Emergency (ER) | payer OTHER ==
[2017-01-20 14:45] VITALS: Ht 185.4 cm; Wt 99.3 kg
[~2017-02-15] VITALS: Ht 185.4 cm; Wt 99.3 kg
[~2017-02-15 06:54] MED LIST changes: +DIF100 PO; +LACT1CAP57 PO; +PHEN-726 PO; +REM15 PO
[2017-02-15 07:00] VITALS: BP 147/94; PULSE 94; RESP 16; TEMP 98.6; O2SAT 96
[2017-02-15 07:28] VITALS: BP 148/93; PULSE 92; RESP 16; TEMP 98.5; O2SAT 98
== END 2017-02-15 07:20 | disposition home or self-care (01) ==
LOC: SED 06:54
DX: R33.9 Retention of urine, unspecified (principal); E11.9 Type 2 diabetes mellitus without complications; I10 Essential (primary) hypertension; E78.00 Pure hypercholesterolemia, unspecified; Z85.118 Personal history of other malignant neoplasm of bronchus and lung; Z79.4 Long term (current) use of insulin
CPT/HCPCS: 99283